=== PATIENT | female | born 1975 | race African-American/Black ===

== ENCOUNTER → 2018-02-11 | Outpatient (CLI) | payer MEDICARE ==
[2013-06-21 20:43] VITALS: BP 158/100
[2018-02-11 09:31] LABS: INFLUENZA A PATIENT NEGATIVE (NEGATIVE); INFLUENZA B PATIENT NEGATIVE (NEGATIVE)
== END | disposition home or self-care (01) ==
LOC: LAB 08:40
PROVIDERS: ATTEND Internal Medicine Cardiovascular Disease
DX: J06.9 Acute upper respiratory infection, unspecified (principal)
CPT/HCPCS: 87070; 87804; 87880

== ENCOUNTER → 2021-01-31 | Outpatient (CLI) | payer MEDICARE ==
[2013-06-21 20:43] VITALS: BP 158/100
--- NOTE | 2021-01-31 13:54 | RAD ---
EXAM: Thyroid sonogram. HISTORY: Thyroid nodules. TECHNIQUE: Sonographic imaging of the thyroid was performed. COMPARISON: None. FINDINGS: The right thyroid lobe measures 5.4 x 1.5 x 1.6 cm. The left thyroid lobe measures 5.1 x 1. 7 x 1.4 cm. The isthmus measures 3.9 mm. The thyroid parenchyma is diffusely heterogeneous. There are 2 measurable nodules within the right thyroid lobe. This includes a solid hypoechoic nodule with internal echogenic foci and internal blood flow within the superior right thyroid lobe measurin g 1.4 x 1.1 x 0.6 cm. There is a smaller more isoechoic nodule within the inferior right thyroid lobe measuring 6 x 5 x 5 mm. There are 2 measurable nodules within the left thyroid lobe. This includes a solid predominantly isoe choic nodule with taller than wide morphology within the inferior left thyroid lobe measuring 1.3 x 1 .1 x 1.0 cm. The second lesion is complicated cyst measuring 7 x 7 x 4 mm. IMPRESSION: 1. 1.4 cm nodule within the superior right thyroid lobe. TI-RADS Category 5. Sonographic guided fine- needle aspiration is recommended. Note is made that there is a reported prior study performed at an [facility] facility. An addendum to this report can be submitted if this prior study becomes available to assess for interval change. 2. 1.1 cm nodule within the inferior left thyroid lobe. TI-RADS Category 4. Sonographic follow-up is typically recommended for category 4 nodules of this size. 3. 6 mm nodule within the inferior right thyroid lobe. TI-RADS Category 4. 4. 7 mm benign left thyroid cyst. 5. Diffusely heterogeneous thyroid. This can be seen as a sequela of thyroiditis. Electronically signed by: Cookie Triana MD (01/31/2021 1:51 PM) [id number]
== END ==
LOC: US 14:30
PROVIDERS: ATTEND Internal Medicine Cardiovascular Disease
DX: E04.2 Nontoxic multinodular goiter (principal)
CPT/HCPCS: 76536